=== PATIENT | male | born 1960 ===

== ENCOUNTER 2016-11-06 11:10 | Emergency (ER) | payer BC, OTHER ==
[~2016-11-06 11:10] MED LIST: Iopamidol 370 76% 100 ML VIAL ONE
[2016-11-06 11:45] LABS: #Basophils 0.1 thou/uL (0.0-0.2); #Lymphocytes 1.3 thou/uL (1.20-3.40); #Monocytes 0.5 thou/uL (0.11-0.59); #Neutrophils 3.4 thou/uL (1.40-6.50); %Basophils 1.3 % (0.0-1.0); %Eosinophils 0.9 % (0.0-10.0); %Lymphocytes 24.7 % (21.0-51.0); %Monocytes 9.2 % (0.0-10.0); Hematocrit 37.3 % (42.0-52.0); Mean Platelet Volume 6.3 fL (7.4-10.4); Red Blood Cell (RBC) Count 3.97 mill/uL (4.70-6.10); White Blood Cell (WBC) Count 5.2 thou/uL (4.8-10.8)
--- NOTE | 2016-11-06 12:01 | RAD ---
CHEST 2 VIEWS: Date: 11/06/16 HISTORY: Dyspnea. FINDINGS: No comparison. Cardiac silhouette is unremarkable. Pulmonary vasculature is upper limits of normal. Mediastinum is midline. There is no confluent air space consolidation, pneumothorax, or pleural fluid evident. IMPRESSION: No active cardiopulmonary abnormalities are demonstrated. POS: [facility]
[2016-11-06 12:03] LABS: Troponin I 0.022 ng/mL (< 0.028)
--- NOTE | 2016-11-06 12:49 | CT ---
CT PULMONARY ANGIOGRAM WITH IV CONTRAST AND 3D POSTPROCESSING: Date: 11/06/16 HISTORY: 56-year-old male with dyspnea, orthopnea, and uncontrolled hypertension, elevated D-Dimer. FINDINGS: There is good contrast opacification of the pulmonary arterial vasculature without filling defects t o suggest pulmonary embolism. There is no evidence of aneurysmal dilatation of the thoracic aorta. N o pericardial effusion is seen. There is a tiny left and a small right pleural effusion. No pneumoth oraces are identified. No lobar consolidation is seen. Moderate atelectatic changes are seen adjacen t to the pleural effusions. There is a small hiatal hernia. There are degenerative changes in the sp ine. IMPRESSION: No CT evidence of pulmonary embolism. POS: OFF
[2016-11-06 13:29] LABS: ALT (SGPT) 26 U/L (8-55); AST (SGOT) 23 U/L (5-34); Alkaline Phosphatase 64 U/L (40-150); Anion Gap 14 mmol/L (10-20); BUN (Urea Nitrogen) 15 mg/dL (8.4-25.7); Bilirubin, Total 1.5 mg/dL (0.2-1.2); Calc. Creatinine Clearance 0 mL/min (70-130); Calcium 9.5 mg/dL (7.8-10.44); Carbon Dioxide 24 mmol/L (22-29); Chloride 108 mmol/L (98-107); Estimated GFR-MDRD 77; Globulin 2.7 g/dL (2.4-3.5); Protein, Total 6.7 g/dL (6.0-8.3)
== END 2016-11-06 14:00 | disposition home or self-care (01) ==
LOC: SCSER 11:10
DX: J90 Pleural effusion, not elsewhere classified (principal); R00.1 Bradycardia, unspecified; I10 Essential (primary) hypertension; M19.90 Unspecified osteoarthritis, unspecified site; E78.5 Hyperlipidemia, unspecified; Z79.82 Long term (current) use of aspirin; Z79.899 Other long term (current) drug therapy
CPT/HCPCS: 71020; 71275; 80053; 82553; 83880; 84484; 85025; 85379; 93005

== ENCOUNTER 2019-03-31 15:13 | Outpatient (CLI) | payer BC ==
--- NOTE | 2019-03-31 16:07 | MRI ---
MR of the left shoulder without contrast INDICATION: Left shoulder pain. Tear of the left rotator cuff TECHNIQUE: Sagittal T1, axial and coronal PD fat sat, sagittal and coronal T2 fat sat images were obt ained of the left shoulder. COMPARISON: None. FINDINGS: Rotator cuff: There is [id number] tendinosis of the supraspinatus. There is increased T2 signal seen involving the subcortical bone plate of the greater tuberosity near the supraspinatus insertion on image 11 of series 7 which is nonspecific and may reflect degenerative edema with multip le subchondral cystlike abnormalities seen near the insertion versus small areas of cortical bone marrow contusion. Glenohumeral joint: Articular cartilage is intact. Glenoid labrum: Intact Biceps tendon and biceps anchor: Intact and located. Acromion clavicular joint: normal Subacromial subdeltoid space: No appreciable fluid. Axillary region: No lymphadenopathy. Surrounding shoulder musculature: Normal. No evidence of atrophy or strain. IMPRESSION: 1. [id number] supraspinatus tendinosis. 2. Degenerative subchondral cystlike abnormalities involving the greater tuberosity, subjacent to the supraspinatus insertion. There is mild increased T2 signal seen near the footprint of the supraspinatus, some which may be related to the degenerative subchondral cyst; however, small focal c ontusion from an insertional-type avulsion injury cannot be entirely excluded.
== END 2019-03-31 15:14 | disposition home or self-care (01) ==
LOC: BICMRI 15:13
PROVIDERS: ATTEND Orthopaedic Surgery
DX: M75.102 Unspecified rotator cuff tear or rupture of left shoulder, not specified as traumatic (principal); M75.82 Other shoulder lesions, left shoulder; R93.7 Abnormal findings on diagnostic imaging of other parts of musculoskeletal system